=== PATIENT | male | born 1960 | race Hispanic/Latino ===

== ENCOUNTER 2017-08-06 18:25 | Emergency (ER) | payer OTHER ==
[~2017-08-06] VITALS: Ht 180.3 cm; Wt 99.8 kg
[2017-08-06] MEDS ORDERED: HYDROCODONE/APAP 10MG-325MG TAB PO ONE (18:45)
[2017-08-06] MEDS ORDERED: DIAZEPAM 5 MG TAB PO ONE (18:45)
[2017-08-07] MEDS ORDERED: DOXYCYCLINE IV ONE (01:31)
[2017-08-07] MEDS ORDERED: [UNRECOGNIZED DRUG - OTHER] IV ONE (01:31)
== END 2017-08-06 19:12 | disposition home or self-care (01) ==
LOC: ER 18:25
DX: M54.5 Low back pain (principal); S39.012A Strain of muscle, fascia and tendon of lower back, initial encounter; X50.0XXA Overexertion from strenuous movement or load, initial encounter; E11.9 Type 2 diabetes mellitus without complications
CPT/HCPCS: 99282

== ENCOUNTER 2024-02-08 16:52 | Emergency (ER) | payer OTHER ==
[~2024-02-08] VITALS: Ht 167.6 cm; Wt 98.0 kg
[2024-02-08 18:04] LABS: BASOPHILS % 0.3 % (0.0-1.0); EOSINOPHILS # (AUTO) 0.1 (0.0-0.4); HEMATOCRIT 39.5 % (38.2-49.6); HEMOGLOBIN 13.3 g/dL (14.0-18.0); LYMPHOCYTES # (AUTO) 1.5 (1.0-3.2); LYMPHOCYTES % 25.3 % (18.0-39.1); MEAN CORPUSCULAR HGB CONC 33.7 g/dL (31-35); MEAN CORPUSCULAR VOLUME 92.1 fL (81-99); MONOCYTES # (AUTO) 0.6 (0.2-0.8); MONOCYTES % 9.1 % (4.4-11.3); NEUTROPHILS # (AUTO) 3.8 (2.1-6.9); PLATELET COUNT 191 x10e3/uL (140-360); RED BLOOD COUNT 4.29 x10e6/uL (4.3-5.7); RED CELL DISTRIBUTION WIDTH 11.7 % (11.7-14.4); WHITE BLOOD COUNT 6.05 x10e3/uL (4.8-10.8)
[2024-02-08 18:18] LABS: ALBUMIN 4.1 g/dL (3.5-5.0); ALBUMIN/GLOBULIN RATIO 1.3 (0.8-2.0); ANION GAP 14.4 mmol/L (8-16); BILIRUBIN,TOTAL 0.6 mg/dL (0.2-1.2); CALCIUM 10.1 mg/dL (8.4-10.2); CREATININE, SERUM 1.23 mg/dL (0.72-1.25); POTASSIUM 4.4 mmol/L (3.5-5.1); TOTAL PROTEIN 7.3 g/dL (6.5-8.1)
[2024-02-08 18:24] LABS: TROPONIN I 0.004 ng/mL (0-0.300)
[2024-02-08 18:41] VITALS: TEMP 98.4
[2024-02-08] MEDS: SODIUM CHLORIDE 0.9% 1000ML 1,000 ML IV SCH (19:25)
[2024-02-08] MEDS: INSULIN REGULAR, HUMAN 100 UNIT/1 ML IV ONE (19:27)
[2024-02-08 20:30] VITALS: PULSE 68; RESP 18; O2SAT 100
== END 2024-02-08 20:45 | disposition home or self-care (01) ==
LOC: ER 18:10
DX: R73.9 Hyperglycemia, unspecified (principal); C34.90 Malignant neoplasm of unspecified part of unspecified bronchus or lung; Z79.60 Long term (current) use of unspecified immunomodulators and immunosuppressants
CPT/HCPCS: 36415; 71045; 80053; 82550; 82948; 84484; 85025; 93005; 99283; J7030